=== PATIENT | male | born 1985 | race Caucasian/White ===

== ENCOUNTER 2017-09-13 17:37 | Emergency (ER) | payer MEDICAID ==
[~2017-09-13] VITALS: Ht 182.9 cm; Wt 151.0 kg
[2017-09-13 17:42] VITALS: Ht 182.9 cm; Wt 151.0 kg
[2017-09-13] MEDS ORDERED: IBUP800T25 PO (19:32)
[2017-09-13] MEDS ORDERED: CIPR500T4 PO (19:32)
--- NOTE | 2017-09-13 19:36 | ERD ---
ER Documentation Chief Complaint Chief Complaint LEFT EAR PAIN X 2 DAYS. FEVER YESTERDAY. HX MULT EAR INFX. BALANCE PROB HPI 32-year-old male presents with left earache that he has had for 2 days. He has a history of earaches and this feels similar. He states he has had some clear drainage from the ear as well as fever that began yesterday. His ears describes as fullness and sometimes he feels like it makes him have loss of balance. He has not taken any medications for this. ROS All systems reviewed and are negative except as per history of present illness. Medications Home Meds Active Scripts Ibuprofen* (Motrin*) 800 Mg Tab, 800 MG PO Q6, #30 TAB Prov:JM WILSON PA-C 09/13/17 Ciprofloxacin Hcl* (Ciprofloxacin Hcl*) 500 Mg Tablet, 500 MG PO BID for 7 Days , TAB Prov:JM WILSON PA-C 09/13/17 PMhx/Soc Medical and Surgical Hx: pt denies Surgical Hx History of Surgery: No Hx Neurological Disorder: No Hx Respiratory Disorders: No Hx Cardiac Disorders: Yes (HTN) Hx Psychiatric Problems: No Hx Miscellaneous Medical Probl: No Hx Alcohol Use: No Hx Substance Use: No Hx Tobacco Use: No Smoking Status: Never smoker FmHx Family History: No diabetes Physical Exam Vitals Vital Signs Date Time Temp Pulse Resp B/P Pulse Ox O2 Delivery O2 Flow Rate FiO2 09/13/17 17:42 100.1 109 18 183/90 98 Physical Exam INITIAL VITAL SIGNS: Reviewed by me GENERAL: Awake, alert and oriented x 4, well appearing, nontoxic, speaking in full sentences. No acute distress HEAD: Atraumatic NECK: Supple. No masses. Full range of motion. No meningismus. No midline tenderness. EYES: EOMI. PERRL. EAR: Bilateral tympanic membranes erythematous, no exudates in the canal, no tenderness over the mastoids bilaterally NOSE: Normal nose. THROAT: No tonilar erythema or edema. No exudates. Uvula midline. No kissing tonsils. RESPIRATORY: Clear to auscultation bilaterally. Symmetric chest wall rise. No wheezing or rales. No accessory muscle use. CV: Regular rate and rhythm. No murmurs, rubs, or gallops. NEUROLOGIC: Normal mental status and speech. Face is symmetric. Moves all extremities equally. Motor and sensory distally intact. Normal coordination. Ambulates with a strong steady gait. Procedures/MDM 32-year-old male presents with otitis media in the bilateral ears. He has a low -grade temperature 100.1 he is otherwise well-appearing. I doubt malignant otitis externa or mastoiditis. He is discharged with Cipro which she states works well for him when he gets these infections. Also because he is allergic to penicillin. Patient counseled regarding my diagnostic impression and care plan. Prior to discharge all questions answered. Pt agrees with treatment plan and understands strict return precautions. Pt is instructed to follow up with primary care provider within 24-48 hours. Precautionary instructions provided including instructions to return to the ER if not improving or for any worsening or changing symptoms or concerns. Departure Diagnosis: Primary Impression: Otitis media Condition: Stable Patient Instructions: Otitis Media, Abx Tx (Adult) Additional Instructions: Call your primary care doctor TOMORROW for an appointment during the next 1-2 days.See the doctor sooner or return here if your condition worsens before your appointment time. JM WILSON PA-C Sep 13, 2017 19:36
== END 2017-09-13 20:09 | disposition home or self-care (01) ==
LOC: FTE 17:37
DX: H66.93 Otitis media, unspecified, bilateral (principal); I10 Essential (primary) hypertension
CPT/HCPCS: 99283

== ENCOUNTER 2018-08-27 00:32 | Emergency (ER) | END 2018-08-27 02:32 | disposition home or self-care (01) ==